=== PATIENT | female | born 1950 | race Caucasian/White ===

== ENCOUNTER → 2016-10-03 | Outpatient (CLI) | payer MEDICARE, OTHER ==
[2014-07-21 11:00] VITALS: BP 144/62
[~2016-10-03] MED LIST: BLOO1EAC MC; CARV6.252 PO; CHOL100017 PO; CINN500C PO; CYCL10TA2 PO; DIGO50SO2 PO; DOXY50CA PO; ESCI10TA PO; FENO160T PO; GLIM4TAB2 PO; HYDR1TAB20 PO; LOSA1TAB17 PO; MELO-150 PO; METF500T4 PO; METR60GE TP; MULT1TAB97 PO; OMEG500C3 PO; SITA100T PO
--- NOTE | 2016-10-03 19:51 | KCIC ---
Bilateral digital screening mammograms with CAD: HISTORY COMPARISON Comparison is made to previous studies dated 09/21/2015 and 08/14/2014. FINDINGS Breast density category B. The skin and nipples show no abnormalities. No abnormal lymph nodes are seen in the axilla. The breast parenchyma shows scattered fibroglandular density. There clustered calcifications at the 6 o'clock B position of the left breast which are joint interval increase in number and some pleomorphism. Malignancy cannot be excluded and further evaluation with stereotactic biopsy is recommended. There continue to be small nodular parenchymal densities bilaterally which have not changed. There are other dominant masses, suspicious calcifications or architectural distortions. Benign appearing calcifications are present IMPRESSION Interval increase in the clustered calcifications at the 6 o'clock B position of the left breast. Recommend stereotactic biopsy. This study was interpreted with the benefit of Computerized Aided Detection (CAD). Mammography is not 100% sensitive in detecting breast cancer. Therefore, a self breast exam and a clinical breast exam are very important. A negative mammogram does not negate a clinically suspicious finding and should not result in a delay in biopsying a clinically suspicious abnormality. BI-RADS category 4: Suspicious. Recommend stereotactic biopsy. This patient's information has been entered into a reminder system for the patient to be notified with the results of this examination and a target date for her next mammograms. Electronically signed by: Jennifer Henry MD (Oct 03, 2016 19:49:25)
== END | disposition home or self-care (01) ==
LOC: KCIC MAMMO 13:54
PROVIDERS: ATTEND Obstetrics & Gynecology
DX: Z12.31 Encounter for screening mammogram for malignant neoplasm of breast (principal)
CPT/HCPCS: G0202; 77067

== ENCOUNTER → 2017-06-17 | Outpatient (CLI) | payer MEDICARE, OTHER ==
[2014-07-21 11:00] VITALS: BP 144/62
[~2017-06-17] MED LIST changes: -CINN500C PO; +CINN500C2 PO; -ESCI10TA PO; +ESCITALOPRAM OX10 MG PO; -LOSA1TAB17 PO; +LOSA1TAB22 PO; -MELO-150 PO; +MELO15TA23 PO
--- NOTE | 2017-06-17 13:58 | KCIC ---
DATE: 06/17/2017 EXAM: DIGITAL DIAGNOSTIC LT HISTORY: Follow-up benign breast biopsy for microcalcifications COMPARISON: 10/03/2016 This study was interpreted with the benefit of Computerized Aided Detection (CAD). The breast parenchyma shows scattered fibroglandular densities. Breast parenchyma level B. FINDINGS: The fibroglandular pattern is nodular in character, but unchanged. No new or enlarging left breast densities are seen. There are clustered and not clustered microcalcifications. A new breast biopsy marker is identified adjacent to the cluster of microcalcifications at the 6:00 location. Reportedly that interval biopsy revealed produced benign results. No new or increasing microcalcifications are seen. IMPRESSION: Stable left mammograms without evidence of malignancy. Follow-up bilateral mammography in 6 months is suggested. BI-RADS CATEGORY: 2 BENIGN FINDING(S) RECOMMENDED FOLLOW-UP: 6M 6 MONTH FOLLOW-UP PQRS compliance statement: Patient information was entered into a reminder system with a target due date for the next mammogram. Mammography is a sensitive method for finding small breast cancers, but it does not detect them all and is not a substitute for careful clinical examination. A negative mammogram does not negate a clinically suspicious finding and should not result in delay in biopsying a clinically suspicious abnormality. "Our facility is accredited by the [employer] Mammography [employer]."
== END | disposition home or self-care (01) ==
LOC: KCIC MAMMO 07:51
PROVIDERS: ATTEND Nurse Practitioner Family
DX: R92.0 Mammographic microcalcification found on diagnostic imaging of breast (principal)
CPT/HCPCS: G0206; 77065

== ENCOUNTER → 2018-08-25 | Outpatient (CLI) | payer MEDICARE, OTHER ==
[2014-07-21 11:00] VITALS: BP 144/62
[~2018-08-25] MED LIST changes: +CARV6.2511 PO; -CARV6.252 PO; +METF500T16 PO; -METF500T4 PO
--- NOTE | 2018-08-25 17:40 | KCIC ---
Bilateral digital screening mammograms with 3-D tomosynthesis: Reason for examination: Routine screening. Comparison is made to previous studies dated back to 08/14/2014. Bilateral mammograms in CC and oblique projections were obtained with 2-D imaging and 3-D tomosynthesis imaging on a Siemens Inspiration unit and reviewed on the workstation. Interpretation was made with the benefit of CAD. The skin and nipples show no abnormalities. No abnormal axillary lymph nodes are seen. The breast parenchyma shows scattered fatty and fibroglandular density. (Breast density: Category B.) There appears to be a biopsy site in the 6:00 position posteriorly in the left breast which shows some adjacent increasing calcifications. These probably represent changes of fat necrosis. There continue to be nodular densities bilaterally which are unchanged. There are no new dominant masses, suspicious calcifications or architectural distortion. Benign calcifications are present. Impression: No evidence of malignancy. Recommend routine screening. BI-RAD Category 2: Benign. "Our facility is accredited by the [employer] Mammography [employer]." This patient's information has been entered into a reminder system for the patient to be notified with the results of her examination and a target date for the next mammogram. Electronically signed by: Analy Henry MD (08/25/2018 5:35 PM) [id number]
== END | disposition home or self-care (01) ==
LOC: KCIC MAMMO 14:43
PROVIDERS: ATTEND Family Medicine
DX: Z12.31 Encounter for screening mammogram for malignant neoplasm of breast (principal)
CPT/HCPCS: 77063; 77067

== ENCOUNTER 2019-08-11 11:29 | Emergency (ER) | payer MEDICARE, OTHER ==
[~2019-08-11 11:29] MED LIST changes: -GLIM4TAB2 PO; +GLIM4TAB8 PO
[2019-08-11 11:56] VITALS: BP 157/101
--- NOTE | 2019-08-11 12:29 | PHYS DOC ---
Past Medical History Past Medical History: CHF, Diabetes-Type II, Hypertension, Other Additional Past Medical Histor: Rosacea, chronic neck pain Past Surgical History: Hysterectomy, Tonsillectomy, Tubal ligation, Other Additional Past Surgical Histo: Blasser sling, Bilateral breast biopsies, Uterine ablation Alcohol Use: None Drug Use: None Adult General Chief Complaint Chief Complaint: HAND PROBLEM HPI HPI Patient is a 68 year old female who presents to the emergency department with complaints of swelling in her left hand for the last 4-5 weeks. 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 She denies any new injury. Patient denies any change in sensation, tingling, redness, warmth, or fever. She reports concern because she has a history of congestive heart failure and was scheduled to have a pacemaker placed toward the end of this month. Patient denies any chest pain, shortness of breath, swelling in her lower extremities, palpitations, nausea, vomiting, abdominal pain, dizziness, or fever. She currently rates pain a 5 out of 10 on pain scale, patient states she has a history of arthritis and takes 1 g of Tylenol 4 times a day for pain. All other ROS is neg unless otherwise noted in HPI. Review of Systems Review of Systems See Above Allergies Allergies Allergies Coded Allergies Type Severity Reaction Last Updated Verified Penicillins Allergy Intermediate Rash 02/10/14 Yes nickel Adverse Reaction Intermediate 02/10/14 Yes aspirin Adverse Reaction Mild 02/10/14 Yes Physical Exam Physical Exam Constitutional: Well developed, well nourished, no acute distress, non-toxic appearance. [] HENT: Normocephalic, atraumatic, bilateral external ears normal, nose normal. [] Eyes: PERRLA, EOMI, conjunctiva normal, no discharge. [] Neck: Normal range of motion, no stridor. [] Cardiovascular:Heart rate regular rhythm, no murmur [] Lungs & Thorax: Bilateral breath sounds clear to auscultation, Respirations even and unlabored, no retractions, no respiratory distress [] Skin: Warm, dry, no erythema, no rash. [] Extremities: L hand: No bony tenderness, no cyanosis, no deformity, no warmth, no clubbing, ROM intact, 1+ edema Neurologic: Alert and oriented X 3, no focal deficits noted. [] Psychologic: Affect normal, judgement normal, mood normal. [] Current Patient Data Vital Signs Vital Signs Date Time Temp Pulse Resp B/P (MAP) Pulse Ox O2 Delivery O2 Flow Rate FiO2 08/11/19 11:56 98.0 97 20 157/101 (119) 96 Room Air 98.0 EKG EKG [] Radiology/Procedures Radiology/Procedures [] Course & Med Decision Making Course & Med Decision Making Pertinent Labs and Imaging studies reviewed. (See chart for details) [] Dragon Disclaimer Dragon Disclaimer This electronic medical record was generated, in whole or in part, using a voice recognition dictation system. Departure Departure Impression: Primary Impression: Arthritic-like pain Additional Impression: Swelling of joint, hand, left Disposition: HOME, SELF-CARE Condition: STABLE Referrals: CALIXTO HERNANDEZ MD (PCP) Patient Instructions: Arthritis, Nonspecific, [id number] Additional Instructions: Continue taking Tylenol as needed for pain. Recommend that you purchase a hand compression sleeve to wear as needed for comfort. Follow-up with your primary care doctor as planned. Return to the ER if symptoms worsen. Problem Qualifiers Primary Impression: Arthritic-like pain Joint pain location: hand Laterality: left Qualified Codes: M25.542 - Pain in joints of left hand ANAND LAZO PEDIATRIC PHYSICIAN ASSISTANT Aug 11, 2019 12:29
== END 2019-08-11 13:11 | disposition home or self-care (01) ==
LOC: ER 11:29
DX: M25.542 Pain in joints of left hand (principal); R22.32 Localized swelling, mass and lump, left upper limb; I11.0 Hypertensive heart disease with heart failure; I50.9 Heart failure, unspecified; E11.9 Type 2 diabetes mellitus without complications; G89.29 Other chronic pain; Z88.0 Allergy status to penicillin; Z88.6 Allergy status to analgesic agent; Z88.8 Allergy status to other drugs, medicaments and biological substances
CPT/HCPCS: 99281

== ENCOUNTER → 2019-10-04 | Outpatient (CLI) | payer MEDICARE, OTHER ==
--- NOTE | 2019-10-04 16:15 | KCIC ---
Bilateral digital screening mammograms with 3-D tomosynthesis: Reason for examination: Routine screening. Comparison is made to previous studies dated back to 10/03/2016. Bilateral mammograms in CC and oblique projections were obtained with 2-D imaging and 3-D tomosynthesis imaging on a Siemens Inspiration unit and reviewed on the workstation. Interpretation was made with the benefit of CAD. The skin and nipples show no abnormalities. No abnormal axillary lymph nodes are seen. The breast parenchyma shows scattered fatty and fibroglandular density. (Breast density: Category B.) There continue to be clustered calcifications at the 6:00 B position of the left breast with an adjacent biopsy clip which at the time of biopsy showed fibroadenomatoid changes and microcalcifications and no malignancy. The calcifications at this site presently appears to be stable. There continue to be coarse clustered and scattered benign-appearing calcifications bilaterally which are stable. There continue to be small nodular parenchymal asymmetries bilaterally which are stable. There are no new dominant masses, suspicious calcifications or architectural distortion. Impression: No evidence of malignancy. Recommend routine screening. BI-RAD Category 2: Benign. "Our facility is accredited by the [employer] Mammography Program." This patient's information has been entered into a reminder system for the patient to be notified with the results of her examination and a target date for the next mammogram. Electronically signed by: Analy Henry MD (10/04/2019 4:12 PM) [id number]
== END | disposition home or self-care (01) ==
LOC: KCIC MAMMO 12:56
PROVIDERS: ATTEND Family Medicine
DX: Z12.31 Encounter for screening mammogram for malignant neoplasm of breast (principal); N64.89 Other specified disorders of breast
CPT/HCPCS: 77063; 77067

== ENCOUNTER → 2020-06-15 | Outpatient (CLI) | payer MEDICARE, OTHER ==
[~2020-06-15] MED LIST changes: +ICOS1CAP PO
== END ==
LOC: LAB 14:08
PROVIDERS: ATTEND Internal Medicine Gastroenterology
DX: Z01.812 Encounter for preprocedural laboratory examination (principal); Z86.010 Personal history of colon polyps; Z20.828 Contact with and (suspected) exposure to other viral communicable diseases
CPT/HCPCS: U0003

== ENCOUNTER → 2020-06-22 | Day surgery (SDC) | payer MEDICARE, OTHER ==
[~2020-06-22] MED LIST changes: +IV RINGERS,LACTATED 1000ML 1,000 ML IV SCH; +LIDOCAINE 2% PF 5 ML VIAL. ONE; +PROPOFOL 10 MG/ML (20ML) VIAL. IV ONE
[2020-06-22 08:39] VITALS: BP 126/59
--- NOTE | 2020-06-22 08:45 | CONS ---
DATE OF CONSULTATION: 06/22/2020 GI CONSULTATION REFERRING PHYSICIAN: Dawit Melo MD REASON FOR CONSULTATION: History of colonic polyps. HISTORY OF PRESENT ILLNESS: A 69-year-old female whose past medical history is significant for diabetes, hypertension, congestive heart failure, is seen for interval colonoscopy. She has had polyps once approximately 20 years ago; has had none since. Bowel habits are regular without diarrhea or constipation. There has been no melena and/or hematochezia. Weight and appetite are stable and family history is unrevealing for colon cancer. She is otherwise without additional complaints. PAST MEDICAL HISTORY: CHF, diabetes, hypertension, anemia, arthritis. ALLERGIES: PENICILLIN, ASPIRIN, NICKEL. MEDICATIONS: Include carvedilol, vitamin D, cyclobenzaprine, digoxin, doxycycline, citalopram, glimepiride, hydrocodone, Vascepa, losartan, metformin, multivitamins. SOCIAL HISTORY: She was a social drinker in the past. Nonsmoker. FAMILY HISTORY: Significant for diabetes, hypertension and heart attacks. PAST SURGICAL HISTORY: Eye surgery, hysterectomy, tonsillectomy, tubal ligation and neck surgery. REVIEW OF SYSTEMS: Per records. PHYSICAL EXAMINATION: GENERAL: Reveals a well-nourished, well-developed female, who is alert, cooperative, in no acute distress. VITAL SIGNS: Temp 98.1, pulse 78, respiratory rate 20. LUNGS: Clear. CARDIOVASCULAR: Reveals an S1, S2 without S3, S4 or appreciable murmur. ABDOMEN: Reveals a soft abdomen, normal bowel sounds, without appreciable hepatosplenomegaly. EXTREMITIES: No cyanosis, clubbing, edema. IMPRESSION: History of colonic polyps. Surveillance exam is recommended at this time. Risks and benefits of procedure, including risk of hemorrhage and perforation for operation have been discussed. The patient is willing to proceed at this time. I would like to thank you, Dr. Dawit Melo, for allowing us to consult and participate in the patient's care. DEIDRE GARCIA MD DR: CHAPARRO/geovanna JOB#: [id number] / [id number] DAWIT Hastings MD
== END | disposition home or self-care (01) ==
LOC: ENDOS 06:55
PROVIDERS: ATTEND Internal Medicine Gastroenterology
DX: Z12.11 Encounter for screening for malignant neoplasm of colon (principal); K64.0 First degree hemorrhoids; K57.30 Diverticulosis of large intestine without perforation or abscess without bleeding; I11.0 Hypertensive heart disease with heart failure; I50.9 Heart failure, unspecified; M19.90 Unspecified osteoarthritis, unspecified site; E11.9 Type 2 diabetes mellitus without complications; Z86.010 Personal history of colon polyps; E78.00 Pure hypercholesterolemia, unspecified; K21.9 Gastro-esophageal reflux disease without esophagitis; G47.30 Sleep apnea, unspecified; E66.9 Obesity, unspecified; Z90.710 Acquired absence of both cervix and uterus; Z98.51 Tubal ligation status; Z98.890 Other specified postprocedural states; Z79.84 Long term (current) use of oral hypoglycemic drugs; Z79.899 Other long term (current) drug therapy; Z88.0 Allergy status to penicillin; Z88.8 Allergy status to other drugs, medicaments and biological substances; Z82.49 Family history of ischemic heart disease and other diseases of the circulatory system; Z83.3 Family history of diabetes mellitus
CPT/HCPCS: G0105; J2704; 45378

== ENCOUNTER 2020-12-18 18:55 | Observation (INO) | payer MEDICARE, OTHER ==
[~2020-12-18] VITALS: Ht 161.3 cm; Wt 75.0 kg
[~2020-12-18 18:55] MED LIST changes: -IV RINGERS,LACTATED 1000ML 1,000 ML IV SCH; -LIDOCAINE 2% PF 5 ML VIAL. ONE; -PROPOFOL 10 MG/ML (20ML) VIAL. IV ONE
[2020-12-18 19:49] LABS: BASO # 0.1 x10^3/uL (0.0-0.2); BASO % 1 % (0-3); EOS # 0.3 x10^3/uL (0.0-0.7); EOS % 3 % (0-3); HEMATOCRIT 33.2 % (36.0-47.0); HEMOGLOBIN 11.1 g/dL (12.0-15.5); LYMPH # 1.8 x10^3/uL (1.0-4.8); LYMPH % 18 % (24-48); MEAN CORPUSCULAR HEMOGLOBIN 29 pg (25-35); MEAN CORPUSCULAR HGB CONC 34 g/dL (31-37); MEAN CORPUSCULAR VOLUME 86 fL (79-100); MONO # 0.7 x10^3/uL (0.0-1.1); MONO % 7 % (0-9); NEUT # 7.2 x10^3/uL (1.8-7.7); NEUT % 71 % (31-73); PLATELET COUNT 213 x10^3/uL (140-400); RED BLOOD COUNT 3.84 x10^6/uL (3.50-5.40); RED CELL DISTRIBUTION WIDTH 12.2 % (11.5-14.5); WHITE BLOOD COUNT 10.1 x10^3/uL (4.0-11.0)
[2020-12-18 19:59] LABS: CREATININE 1.3 mg/dL (0.6-1.0); GFR 40.3; POTASSIUM 4.7 mmol/L (3.5-5.1)
[2020-12-18 20:05] LABS: ALBUMIN 3.5 g/dL (3.4-5.0); TOTAL BILIRUBIN 0.5 mg/dL (0.2-1.0)
[2020-12-18 20:13] LABS: PROTHROMBIN TIME PATIENT 15.7 SEC (11.7-14.0)
--- NOTE | 2020-12-18 20:19 | PHYS DOC ---
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 She states it then gave her the green check olivier. She states that the company is going to call her physician. Patient's ca rdiologist is at . Patient states that for the last couple days she has had some shortness of breath and generalized weakness and some nausea. Patient denies fever, chest pain, dizziness, headache, syncope, vision changes, focal weakness, swelling, abdominal pain, diarrhea, cough. She denies any pain at this time. She is fully vaccinated for Covid. Patient has a history of a hysterectomy, CHF, diabetes, hypertension, uterine ablation, rosacea, tonsillectomy. 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 [] Eyes: Denies change in visual acuity. [] HENT: Denies nasal congestion or sore throat. [] Respiratory: Denies cough or +shortness of breath. [] Cardiovascular: Denies chest pain or edema. [] GI: Denies abdominal pain, +nausea, denies vomiting, bloody stools or diarrhea. [] : Denies dysuria. [] Musculoskeletal: Denies back pain or joint pain. + Generalized weakness [] Integument: Denies rash. [] Neurologic: Denies headache, focal weakness or sensory changes. [] Endocrine: Denies polyuria or polydipsia. [] Lymphatic: Denies swollen glands. [] Psychiatric: Denies depression or anxiety. [] (YUN JOSE TEST CAR DRIVER) Heart Score: C/O Chest Pain: No Risk Factors: Risk Factors: DM, Current or recent (<one month) smoker, HTN, HLP, family history of CAD, obesity. Risk Scores: Score 0 - 3: 2.5% MACE over next 6 weeks - Discharge Home Score 4 - 6: 20.3% MACE over next 6 weeks - Admit for Clinical Observation Score 7 - 10: 72.7% MACE over next 6 weeks - Early Invasive Strategies ([facility],YUN M TEST CAR DRIVER) Allergies: Allergies: Allergies Coded Allergies Type Severity Reaction Last Updated Verified Penicillins Allergy Intermediate Rash 12/18/20 Yes nickel Adverse Reaction Intermediate 12/18/20 Yes aspirin Adverse Reaction Mild 12/18/20 Yes ([facility],YUN M TEST CAR DRIVER) Physical Exam: PE: Constitutional: Well developed, well nourished, no acute distress, non-toxic appearance. [] HENT: Normocephalic, atraumatic, bilateral external ears normal, oropharynx moist, no oral exudates, nose normal. [] Eyes: PERRLA, EOMI, conjunctiva normal, no discharge. [] Neck: Normal range of motion, no tenderness, supple, no stridor. [] Cardiovascular:Heart rate regular paced rhythm, no murmur [] Lungs & Thorax: Bilateral upper breath sounds clear and lower diminished to auscultation [] Abdomen: Bowel sounds normal, soft, no tenderness, no masses, no pulsatile masses. [] Skin: Warm, dry, no erythema, no rash. [] Back: No tenderness, no CVA tenderness. [] Extremities: No tenderness, no cyanosis, no clubbing, ROM intact, no edema. [] Neurologic: Alert and oriented X 3, normal motor function, normal sensory function, no focal deficits noted. [] Psychologic: Affect normal, judgement normal, mood normal. [] ([facility],YUN M TEST CAR DRIVER) Current Patient Data: Labs: Laboratory Tests Test 12/18/20 19:40 White Blood Count 10.1 x10^3/uL (4.0-11.0) Red Blood Count 3.84 x10^6/uL (3.50-5.40) Hemoglobin 11.1 g/dL (12.0-15.5) L Hematocrit 33.2 % (36.0-47.0) L Mean Corpuscular Volume 86 fL (79-100) Mean Corpuscular Hemoglobin 29 pg (25-35) Mean Corpuscular Hemoglobin Concent 34 g/dL (31-37) Red Cell Distribution Width 12.2 % (11.5-14.5) Platelet Count 213 x10^3/uL (140-400) Neutrophils (%) (Auto) 71 % (31-73) Lymphocytes (%) (Auto) 18 % (24-48) L Monocytes (%) (Auto) 7 % (0-9) Eosinophils (%) (Auto) 3 % (0-3) Basophils (%) (Auto) 1 % (0-3) Neutrophils # (Auto) 7.2 x10^3/uL (1.8-7.7) Lymphocytes # (Auto) 1.8 x10^3/uL (1.0-4.8) Monocytes # (Auto) 0.7 x10^3/uL (0.0-1.1) Eosinophils # (Auto) 0.3 x10^3/uL (0.0-0.7) Basophils # (Auto) 0.1 x10^3/uL (0.0-0.2) Sodium Level 137 mmol/L (136-145) Potassium Level 4.7 mmol/L (3.5-5.1) Chloride Level 101 mmol/L (98-107) Carbon Dioxide Level 29 mmol/L (21-32) Anion Gap 7 (6-14) Blood Urea Nitrogen 20 mg/dL (7-20) Creatinine 1.3 mg/dL (0.6-1.0) H Estimated GFR (Cockcroft-Gault) 40.3 BUN/Creatinine Ratio 15 (6-20) Glucose Level 178 mg/dL (70-99) H Calcium Level 9.0 mg/dL (8.5-10.1) Total Bilirubin 0.5 mg/dL (0.2-1.0) Aspartate Amino Transferase (AST) 13 U/L (15-37) L Alanine Aminotransferase (ALT) 21 U/L (14-59) Alkaline Phosphatase 52 U/L (46-116) Troponin I Quantitative < 0.017 ng/mL (0.000-0.055) IF-Jfz-V-Type Natriuretic Peptide 448 pg/mL (0-124) H Total Protein 7.0 g/dL (6.4-8.2) Albumin 3.5 g/dL (3.4-5.0) Albumin/Globulin Ratio 1.0 (1.0-1.7) Laboratory Tests 12/18/20 19:40 Laboratory Tests 12/18/20 19:40 Vital Signs: Vital Signs Date Time Temp Pulse Resp B/P (MAP) Pulse Ox O2 Delivery O2 Flow Rate FiO2 12/18/20 19:30 96.4 83 20 161/74 (103) 93 Room Air 96.4 (YUN JOSE APRN) EKG: EK and read by Dr. Will as ventricular paced rhythm without any ischemic findings or STEMI. (YUN JOSE APRN) Radiology/Procedures: Radiology/Procedures: [] Impression: [facility] [address] [place] [address] IMAGING REPORT Signed PATIENT: MARCO ROSALES ACCOUNT: [id number] : 1950 LOCATION: ER AGE: 70 SEX: F EXAM STATUS: REG ER ORD. PHYSICIAN: YUN JOSE APRN REASON: SOA PROCEDURE: PORTABLE CHEST 1V EXAM: AP View of the chest DATE: 12/18/2020 8:14 PM INDICATION: Reason: SOA / Spl. Instructions: / History: COMPARISON: No Prior FINDINGS: Cardiac generator pack obscures a portion of the left chest with leads in stable position. The heart is not enlarged. Mediastinal and hilar contours are normal. Minimal left lung base opacities likely atelectasis. Aortic calcifications are seen. Trace right pleural effusion. Small left pleural effusion. No pneumothorax. IMPRESSION: Minimal left lung base opacities likely atelectasis. Small pleural effusions. Electronically signed by: Kendrick Mock MD (12/18/2020 8:59 PM) [facility] DICTATED and SIGNED BY: KENDRICK MOCK MD DATE: 12/18/[id number] 0 (YUN JOSE APRN) Course & Med Decision Making: Course & Med Decision Making Pertinent Labs and Imaging studies reviewed. (See chart for details) See HPI. Alert and oriented x4. Ambulatory with a steady gait. Speaks in full clear sentences. Skin pink warm and dry. Lungs are clear in upper lobes and diminished in lower lobes. Abdomen is soft and nontender. Vital signs are within normal limits. EKG shows ventricular paced rhythm without any acute ischemic findings and no STEMI. Chest x-ray shows pleural effusions. Patient is 93% on room air. Blood work is unremarkable. Patient will be admitted to the hospital due to her defibrillator firing for observation. [] (YUN JOSE APRN) Course & Med Decision Making I oversaw on the above date of service of this patient and discussed the care with the BAKERY DELIVERER. I agree with the findings, plan of care, and disposition as rina mckeon. Electronically signed, Jamil Will DO Critical Care Time This patient required critical care. Due to the fact that the patient required a significant amount of one on one physician - patient contact time, ordering and review of studies, arranging urgent treatment with development of a management plan, evaluation of patients response to treatment with frequent reassessments, and discussions with other providers this patient required 35 minutes of critical care time. Critical care time was indicated due to the inherent instability and/or potential for instability in this patient. The critical care time that is allocated to this patient is above and beyond any time spent on any other billable procedures performed on this patient. (JAMIL WILL DO) Dragon Disclaimer: Dragon Disclaimer: This electronic medical record was generated, in whole or in part, using a voice recognition dictation system. (YUN JOSE APRN) Departure Departure Impression: Primary Impression: Pleural effusion Additional Impressions: Body aches Defibrillator discharge Disposition: ADMITTED INPATIENT Admitting Physician: KARY (YUN JOSE APRN) Condition: STABLE Referrals: CALIXTO HERNANDEZ MD (PCP) YUN JOSE APRN December 18, 2020 20:19 JAMIL WILL DO December 21, 2020 09:55
--- NOTE | 2020-12-18 21:01 | RAD ---
EXAM: AP View of the chest DATE: 12/18/2020 8:14 PM INDICATION: Reason: SOA / Spl. Instructions: / History: COMPARISON: No Prior FINDINGS: Cardiac generator pack obscures a portion of the left chest with leads in stable position. The heart is not enlarged. Mediastinal and hilar contours are normal. Minimal left lung base opacities likely atelectasis. Aortic calcifications are seen. Trace right pleural effusion. Small left pleural effusion. No pneumothorax. IMPRESSION: Minimal left lung base opacities likely atelectasis. Small pleural effusions. Electronically signed by: Kendrick Watson MD (12/18/2020 8:59 PM) [facility]
--- NOTE | 2020-12-18 21:31 | EKG ---
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
[2020-12-18 21:53] LABS: BILIRUBIN,URINE NEGATIVE (NEG); CLARITY,URINE CLEAR; COLOR,URINE YELLOW; NITRITE,URINE POSITIVE (NEG); PROTEIN,URINE 30 mg/dL (NEG-TRACE); UROBILINOGEN,URINE 0.2 mg/dL (0.2 mg/dL)
[2020-12-18 22:00] LABS: AMORPHOUS SEDIMENT,UR PRESENT /HPF; BACTERIA,URINE FEW /HPF (0-FEW); GRANULAR CASTS,URINE OCCASIONAL /HPF; HYALINE CASTS, URINE OCCASIONAL /HPF; RBC,URINE 0 /HPF (0-2)
[2020-12-18 23:10] VITALS: BP 142/68
--- NOTE | 2020-12-18 23:30 | NUR ---
Admit to [facility] room 204 from ED via gurdelmy. A/O x 4 on arrival. Pleasant. Talkative. Admit for AICD discharge. Patient explains she is not sure AIICD discharged but saw a error reading on her heart monitor at home that prompted her to call the [employer]. Admitted for observation. Orientated to room and call light. Reviewed POC to include tele monitor and lab draws. Verbalized understanding. Resting in bed. Eating box lunch. Call light at hand.
[2020-12-18] MEDS ORDERED: CLOP75TA PO (23:36)
[2020-12-18] MEDS ORDERED: SITA100T PO (23:37)
[2020-12-18] MEDS ORDERED: CRESTOR5 MG PO (23:39)
[2020-12-18] MEDS ORDERED: LOSA100T14 PO (23:40)
[2020-12-18] MEDS ORDERED: VITA-8 PO (23:43)
[2020-12-18] MEDS ORDERED: ASPI-630 PO (23:47)
[2020-12-18] MEDS ORDERED: DIPH25CA58 PO (23:51)
[2020-12-18] MEDS ORDERED: HYDR-2761 PO (23:52)
[2020-12-18] MEDS ORDERED: calcium PO (23:54)
[2020-12-18] MEDS ORDERED: tumeric PO (23:58)
[2020-12-19] MEDS ORDERED: diphenhydrAMINE HCL 25 MG CAPSULE PO PRN
[2020-12-19] MEDS ORDERED: vitamin D3 PO (00:06)
[2020-12-19] MEDS ORDERED: cranberry PO (00:08)
[2020-12-19] MEDS ORDERED: MECO10005 PO (00:10)
[2020-12-19] MEDS ORDERED: CINN500C2 PO (00:11)
[2020-12-19 02:42] VITALS: BP 112/87
[2020-12-19] MEDS: ACETAMINOPHEN 500 MG TABLET PO PRN ×2 (03:36→11:44)
[2020-12-19 07:00] VITALS: BP 148/71
[2020-12-19] MEDS ORDERED: AMOXICILLIN/K CLAV 500/125MG TABLET. PO SCH (09:00)
--- NOTE | 2020-12-19 09:13 | HP ---
ADMIT DATE: 12/19/2020 CHIEF COMPLAINT: Body aches and defibrillator, possibly discharge. HISTORY OF PRESENT ILLNESS: The patient is a pleasant 70-year-old female who presented with some body aches. She states that her defibrillator may have discharged. She called the company because there was an error message on the machine. They told her to turn it off and turn it back on, but it still had a green olivier on the screen, so they told her to come in to the ER. I discussed the case with ER physician. She has been admitted overnight. Now, she is being examined in room 204 where she is doing better, but she does have a UTI as well. PAST MEDICAL HISTORY: Defibrillator, CHF, diabetes, hypertension, rosacea, chronic pain, hysterectomy, tonsillectomy, tubal ligation, bladder sling, breast biopsies, uterine ablation. ALLERGIES: PENICILLIN, ASPIRIN AND NICKEL. FAMILY HISTORY: Diabetes. SOCIAL HISTORY: She does not drink, smoke or take drugs. 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 MEDICATIONS: Reviewed. REVIEW OF SYSTEMS: GENERAL: No history of weight change, weakness or fevers. SKIN: No bruising, hair changes or rashes. EYES: No blurred, double or loss of vision. NOSE AND THROAT: No history of nosebleeds, hoarseness or sore throat. HEART: No history of palpitations, chest pain or shortness of breath on exertion. LUNGS: Denies cough, hemoptysis, wheezing or shortness of breath. GASTROINTESTINAL: Denies changes in appetite, nausea, vomiting, diarrhea or constipation. GENITOURINARY: No history of frequency, urgency, hesitancy or nocturia. NEUROLOGIC: Denies history of numbness, tingling, tremor or weakness. PSYCHIATRIC: No history of panic, anxiety or depression. ENDOCRINE: No history of heat or cold intolerance, polyuria or polydipsia. EXTREMITIES: Denies muscle weakness, joint pain, pain on walking or stiffness. PHYSICAL EXAMINATION: VITALS: Within normal limits and are stable. GENERAL: No apparent distress. Alert and oriented. HEENT: Normal cephalic atraumatic, external auditory canals are patent. EYES: Extraocular muscles are intact, pupils are equally round and reactive to light and accommodation. MUSCULOSKELETAL: Well developed, well nourished, good range of motion. ENDOCRINE: No thyromegaly was palpated. LYMPHATICS: No cervical chain or axillary nodes were noted. HEMATOPOIETIC: No bruising. NECK: Supple, no JVD, no thyromegaly was noted. LUNGS: Clear to auscultation in all lung mcmanus without rhonchi or wheezing. HEART: RRR, S1, S2 present. Peripheral pulses intact, no obvious murmurs were noted. ABDOMEN: Soft, nontender. Positive bowel sounds no organomegaly, normal bowel sounds. EXTREMITIES: Without any cyanosis, clubbing, or edema. Pedal pulses intact, Homans sign is negative. NEUROLOGIC: Normal speech, normal tone. A and O x 3, moves all extremities, no obvious focal deficits. PSYCHIATRIC: Normal affect, normal mood. Stable. SKIN: No ulcerations or rashes, good skin turgor, no jaundice. VASCULAR: Good capillary refill, neurovascular bundle appears to be intact. LABORATORY DATA: Troponin is 0. BNP 448, hemoglobin 11. ASSESSMENT AND PLAN: Possible discharge of defibrillator with incidental finding of UTI. We have started Augmentin 875 p.o. b.i.d. We are doing cardiac monitoring, home meds, DVT prophylaxis. Full Code. Serial enzymes, serial EKGs. Await cardiology input. We will probably interrogate the defibrillator. If everything looks good, we may be able to let her go home later today. ZINA/JULIA DR: ZINA/geovanna TID: [id number]
--- NOTE | 2020-12-19 09:43 | PDOC2 ---
PINO RODRÍGUEZ DEAN OF BOYS 12/19/20 0943: CARDIAC CONSULT DATE OF CONSULT Date of Consult DATE: 12/19/20 TIME: 09:22 REASON FOR CONSULT Reason for Consult: Defibrillator discharge REFERRING PHYSICIAN Referring Physician: Kitty SOURCE Source: Chart review, Patient HISTORY OF PRESENT ILLNESS HISTORY OF PRESENT ILLNESS This is a pleasant 70 yo female admitted for complains of not feeling good. Reports of body aches at least in the last 2 days. No chest pain or SOA and no leg swelling. No fever or chills. She just has been feeling miserable. Denies any cardiac symptoms. She then see her defibrillator flashing on the top part and saying p32 and thinking it was an error and then she did a transmission and received instructions to switch it off and then on and then it was ok after that. Denies any defibrillation treatment. 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 PAST MEDICAL HISTORY Cardiovascular: CAD, CHF, HTN, Hyperlipidemia, Other (chronic LBBB, cardiomyopathy) Pulmonary: Other (ALLYSSA) CENTRAL NERVOUS SYSTEM: Carpal Tunnel Syndrome Musculoskeletal: Osteoarthritis, Other (boutonniere deformity) Renal/: Urinary Incontinence Endocrine: Diabetes (2) PAST SURGICAL HISTORY Past Surgical History: Tubal Ligation, Tonsillectomy, Hysterectomy, Other (PCI, breast surgery, bladder sling) FAMILY HISTORY Family History: Diabetes, Hypertension SOCIAL HISTORY Smoke: No ALCOHOL: none Drugs: None Lives: with Family CURRENT MEDICATIONS CURRENT MEDICATIONS Current Medications Medications (Trade) Dose Ordered Sig/Cyndy Route PRN Reason Start Time Stop Time Status Last Admin Dose Admin Diphenhydramine HCl (Benadryl) 25 mg PRN QHS PRN PO INSOMNIA 12/19/20 00:00 12/19/20 00:00 Acetaminophen (Tylenol) 1,000 mg PRN Q6HRS PRN PO PAIN/FEVER 12/19/20 03:30 12/19/20 03:36 ALLERGIES ALLERGIES: Coded Allergies: Penicillins (Verified Allergy, Intermediate, Rash, 12/18/20) TOPICAL PENICILLIN nickel (Verified Adverse Reaction, Intermediate, 12/18/20) aspirin (Verified Adverse Reaction, Mild, 12/18/20) ROS Review of System 14 point ROS evaluated with pertinent positives noted per HPI PHYSICAL EXAM General: Alert, Oriented X3, Cooperative, No acute distress HEENT: Atraumatic, Mucous membr. moist/pink Lungs: Clear to auscultation, Normal air movement Heart: Regular rate (pacing), Normal S1, Normal S2, Other (2/6 systolic murmur to LLSborder) Abdomen: Soft, No tenderness Extremities: No cyanosis, No edema Skin: No breakdown, No significant lesion Neuro: Normal speech, Sensation intact Psych/Mental Status: Mental status NL, Mood NL MUSCULOSKELETAL: Osteoarthritic changes both hands VITALS/I&O VITALS/I&O: Vital Signs Date Time Temp Pulse Resp B/P (MAP) Pulse Ox O2 Delivery O2 Flow Rate FiO2 12/19/20 07:00 97.7 84 18 148/71 (96) 98 Room Air 97.7 I & O 12/18/20 12/18/20 12/19/20 15:00 23:00 07:00 Intake Total 60 ml Output Total 600 ml Balance -540 ml LABS Lab: Laboratory Tests Test 12/18/20 19:40 12/18/20 19:59 12/18/20 21:45 12/19/20 00:30 White Blood Count 10.1 x10^3/uL (4.0-11.0) Red Blood Count 3.84 x10^6/uL (3.50-5.40) Hemoglobin 11.1 g/dL (12.0-15.5) L Hematocrit 33.2 % (36.0-47.0) L Mean Corpuscular Volume 86 fL (79-100) Mean Corpuscular Hemoglobin 29 pg (25-35) Mean Corpuscular Hemoglobin Concent 34 g/dL (31-37) Red Cell Distribution Width 12.2 % (11.5-14.5) Platelet Count 213 x10^3/uL (140-400) Neutrophils (%) (Auto) 71 % (31-73) Lymphocytes (%) (Auto) 18 % (24-48) L Monocytes (%) (Auto) 7 % (0-9) Eosinophils (%) (Auto) 3 % (0-3) Basophils (%) (Auto) 1 % (0-3) Neutrophils # (Auto) 7.2 x10^3/uL (1.8-7.7) Lymphocytes # (Auto) 1.8 x10^3/uL (1.0-4.8) Monocytes # (Auto) 0.7 x10^3/uL (0.0-1.1) Eosinophils # (Auto) 0.3 x10^3/uL (0.0-0.7) Basophils # (Auto) 0.1 x10^3/uL (0.0-0.2) Sodium Level 137 mmol/L (136-145) Potassium Level 4.7 mmol/L (3.5-5.1) Chloride Level 101 mmol/L (98-107) Carbon Dioxide Level 29 mmol/L (21-32) Anion Gap 7 (6-14) Blood Urea Nitrogen 20 mg/dL (7-20) Creatinine 1.3 mg/dL (0.6-1.0) H Estimated GFR (Cockcroft-Gault) 40.3 BUN/Creatinine Ratio 15 (6-20) Glucose Level 178 mg/dL (70-99) H Calcium Level 9.0 mg/dL (8.5-10.1) Total Bilirubin 0.5 mg/dL (0.2-1.0) Aspartate Amino Transferase (AST) 13 U/L (15-37) L Alanine Aminotransferase (ALT) 21 U/L (14-59) Alkaline Phosphatase 52 U/L (46-116) Troponin I Quantitative < 0.017 ng/mL (0.000-0.055) < 0.017 ng/mL (0.000-0.055) FA-Elu-A-Type Natriuretic Peptide 448 pg/mL (0-124) H Total Protein 7.0 g/dL (6.4-8.2) Albumin 3.5 g/dL (3.4-5.0) Albumin/Globulin Ratio 1.0 (1.0-1.7) Prothrombin Time 15.7 SEC (11.7-14.0) H Prothrombin Time INR 1.3 (0.8-1.1) H Urine Collection Type Unknown Urine Color Yellow Urine Clarity Clear Urine pH 6.0 (<5.0-8.0) Urine Specific [place] 1.020 (1.000-1.030) Urine Protein 30 mg/dL (NEG-TRACE) Urine Glucose (UA) Negative mg/dL (NEG) Urine Ketones (Stick) Negative mg/dL (NEG) Urine Blood Negative (NEG) Urine Nitrite Positive (NEG) Urine Bilirubin Negative (NEG) Urine Urobilinogen Dipstick 0.2 mg/dL (0.2 mg/dL) Urine Leukocyte Esterase Moderate (NEG) Urine RBC 0 /HPF (0-2) Urine WBC 11-20 /HPF (0-4) Urine Squamous Epithelial Cells Few /LPF Urine Amorphous Sediment Present /HPF Urine Bacteria Few /HPF (0-FEW) Urine Hyaline Casts Occasional /HPF Urine Granular Casts Occasional /HPF Urine Mucus Slight /LPF Test 12/19/20 06:00 12/19/20 07:37 Troponin I Quantitative < 0.017 ng/mL (0.000-0.055) Glucose (Fingerstick) 139 mg/dL (70-99) H Laboratory Tests 12/18/20 19:40 Laboratory Tests 12/18/20 19:40 EKG EKG Title: Normal Remote: With Events. [employer] device evaluation 12/18/2020 * Normal Device Function * Events or Alerts: 3 * Battery: OK * Sensing, impedance and thresholds reviewed * Programmed parameters reviewed * Presenting rhythm As BiVP 77bpm * Heart Rate Histograms reviewed Title: Heart Failure Diagnostic: Stable * Heart failure diagnostics assessed through the device * Status: Stable * No overt HF present Title: Ventricular Sensing Episodes * VSE Marker channels are suggestive of NSVT * Total episodes: 3 * Average minutes/day: 0 Last episode 11/25/2020. Episodes 4-6 seconds. 111-154bpm. ECHOCARDIOGRAM ECHOCARDIOGRAM 02/01/2020 [facility] limited TTE Overall LV systolic function is moderately reduced at about 40%. Septal motion is abnormal likely due to biventricular pacing. Grade 1 LV diastolic dysfunction with normal left atrial pressure Normal right ventricular size and systolic function This is a 2D study thus valve function cannot be ascertained but structurally valves appear to be okay without evidence of aortic or mitral valve stenosis on 2D imaging There is a small mostly circumferential pericardial effusion. This is unchanged from prior study from December 2019. There is no evidence of tamponade 12/20/2019 [facility] TTE 1. Normal LV size and moderately reduced LV systolic function. LVEF 35%. Abnormal septal motion due to LBBB 2. Normal RV size and systolic function. ICD lead seen 3. No hemodynamically significant valve disease. 4. Small pericardial effusion with no echo findings of tamponade physiology Compared to previous echo from 2018, effusion is slightly larger, but remains very small with no tamponade. HEART CATH HEART CATH 09/09/18-cardiac catheterization revealed a 90% stenosis of the proximal LAD, treated with a ABHINAV. Moderate stenosis noted in the diagonal branch and mild disease in the RCA. ASSESSMENT/PLAN ASSESSMENT/PLAN 1. UTI 2. Myalgia/malaise 3. CAD: prior PCI/ABHINAV to LAD clinically stable 4. ICM: prior EF at 40%, compensated 5. [employer]-D in situ: TaxJartronic, Interrogation revealed normal functioning device, no treatment and no significant arrhythmia. 6. HTN: controlled 7. DM2: per PCP 8. HLP 9. Chronic systolic CHF 10. Chronic LBBB Recommendations 1. Antibiotic per PCP 2. Anticipate DC today. No cardiac issues 3. Follow up with Dr. Holly in January as scheduled 4. Continue secondary prevention measures including plavix. Will check CK as well JAS VILLARREAL MD 12/19/201930: CARDIAC CONSULT ASSESSMENT/PLAN ASSESSMENT/PLAN Patient seen and examined. Agree with RESIDENTIAL TREATMENT STAFF's assessment and plan. Device check did not show any treatments delivered and no VT/VF recorded CAD clinically stable Chronic systolic HF better compensated Continue current medical regimen and follow up with primary cardiology as scheduled Thank you for your consultation PINO RODRÍGUEZ APRN December 19, 2020 09:43 JAS VILLARREAL MD December 19, 2020 19:31
[2020-12-19 11:00] VITALS: BP 139/70
--- NOTE | 2020-12-19 11:56 | NUR ---
SS following for discharge planning. SS reviewed pt chart and discussed with pt RN. Pt is from home and is currently on room air. Discharge order on the chart for home with self care.
--- NOTE | 2020-12-19 13:41 | NUR ---
Discharge Note: MARCO ROSALES 2 SARVER Discharge instructions and discharge home medications reviewed with Patient and a copy given. All questions have been answered and understanding verbalized. Prescription for Augmentin given to patient, see copy in chart. The following instructions and handouts were given: UTI, pacemaker IV discontinued, no complications. Patient discharged to home with self care.
== END 2020-12-19 13:30 | disposition home or self-care (01) ==
LOC: ER 18:55 → 2 NORTH 21:10
PROVIDERS: ADMIT Internal Medicine; ATTEND Internal Medicine
DX: I42.9 Cardiomyopathy, unspecified (principal); J90 Pleural effusion, not elsewhere classified; M79.10 Myalgia, unspecified site; I11.0 Hypertensive heart disease with heart failure; I50.22 Chronic systolic (congestive) heart failure; I25.10 Atherosclerotic heart disease of native coronary artery without angina pectoris; I44.7 Left bundle-branch block, unspecified; E78.5 Hyperlipidemia, unspecified; N39.0 Urinary tract infection, site not specified; E11.9 Type 2 diabetes mellitus without complications; G56.00 Carpal tunnel syndrome, unspecified upper limb; M19.90 Unspecified osteoarthritis, unspecified site; Z90.710 Acquired absence of both cervix and uterus; Z98.61 Coronary angioplasty status; Z98.51 Tubal ligation status; Z79.899 Other long term (current) drug therapy; Z98.890 Other specified postprocedural states; Z95.810 Presence of automatic (implantable) cardiac defibrillator
CPT/HCPCS: 36415; 71045; 80053; 81001; 82550; 82962; 83880; 84484; 85025; 85610; 87086; 93005; 99291; G0378; Q0163; G0379

== ENCOUNTER → 2021-01-21 | Outpatient (CLI) | payer MEDICARE, OTHER ==
[~2021-01-21] MED LIST changes: +ASPI-630 PO; +CLOP75TA PO; +CRESTOR5 MG PO; +DIPH25CA58 PO; +HYDR-2761 PO; +LOSA100T14 PO; +MECO10005 PO; +VITA-8 PO; +calcium PO; +cranberry PO; +tumeric PO; +vitamin D3 PO
--- NOTE | 2021-01-21 15:46 | KCIC ---
Bilateral digital screening mammograms with 3-D tomosynthesis: Reason for examination: Routine screening. Comparison is made to previous studies dated back to 08/14/2014. Bilateral mammograms in CC and oblique projections were obtained with 2-D imaging and 3-D tomosynthes is imaging on a Siemens Inspiration unit and reviewed on the workstation. Interpretation was made wit h the benefit of CAD. The skin and nipples show no abnormalities. No abnormal axillary lymph nodes are seen. The breast par enchyma shows scattered fatty and fibroglandular density. (Breast density: Category B.) There continu e to be some nodular densities bilaterally which are unchanged. There are also scattered and clustere d calcifications bilaterally which are stable. In the right breast however, there appear to be a nodu le with some associated architectural distortion at the 10:00 C position 12.5 cm from the nipple benjamin uring approximately 8 mm in size. There is also a small nodule located medially at approximately the 3:30 B position 6 cm from the nipple in the right breast and measuring approximately 6 mm in size. Fu rther evaluation with right breast ultrasound is recommended. Impression: New nodular densities in the right breast at the 10:00 C position measuring 8 mm in size and at the 3 :30 B position measuring 6 mm in size. Recommend further evaluation with right breast ultrasound. BI-RAD Category 0: Incomplete. Needs additional imaging evaluation. "Our facility is accredited by the [employer] Mammography Program." This patient's information has been entered into a reminder system for the patient to be notified wit h the results of her examination and a target date for the next mammogram. Electronically signed by: Analy Henry MD (01/21/2021 3:43 PM) [email or web address]
== END ==
LOC: KCIC MAMMO 13:46
PROVIDERS: ATTEND Family Medicine
DX: Z12.31 Encounter for screening mammogram for malignant neoplasm of breast (principal); N64.89 Other specified disorders of breast
CPT/HCPCS: 77063; 77067

== ENCOUNTER → 2021-02-13 | Outpatient (CLI) | payer MEDICARE, OTHER ==
--- NOTE | 2021-02-13 14:43 | KCIC ---
Right breast ultrasound: Reason for examination: Parenchymal density on screening mammogram. Comparison is to mammographic exam dated 01/21/2021. Ultrasound examination was performed of the right breast and axilla. At the 3:00 position 4.5 cm from the nipple, there is a small hypoechoic circumscribed lesion in para llel orientation which measures 7 x 3.4 mm in greatest dimension and probably represents a small fibr oadenoma. In the 10:00 position 10 cm from the nipple and corresponding to the site of previous excis ional biopsy, there is mild heterogeneity to the tissue with probable fat necrosis. This would appear to correspond with the area of mammographic concern. No other cystic or solid nodules are seen no ab normal appearing lymph nodes are seen in the right axilla. IMPRESSION: Small 7 mm circumscribed nodule at the 3:00 position which may represent a small fibroadenoma. Post e xcisional biopsy changes at the 10:00 position 10 cm from the nipple which probably corresponds to th e area of mammographic concern. Recommend reevaluation with right breast mammograms and ultrasound in 3 months. BI-RADS Category 3: Probably Benign. "Our facility is accredited by the [employer] Mammography Program." This patient's information has been entered into a reminder system for the patient to be notified wit h the results of her examination and a target date for the next mammogram. Electronically signed by: Analy Henry MD (02/13/2021 2:40 PM) [email or web address]
== END ==
LOC: KCIC US 12:18
PROVIDERS: ATTEND Family Medicine
DX: N63.41 Unspecified lump in right breast, subareolar (principal); R92.8 Other abnormal and inconclusive findings on diagnostic imaging of breast
CPT/HCPCS: 76641

== ENCOUNTER → 2021-05-16 | Outpatient (CLI) | payer MEDICARE, OTHER ==
--- NOTE | 2021-05-16 13:55 | KCIC ---
Right breast diagnostic digital mammograms with 3-D tomosynthesis: Reason for examination: Follow-up nodules. Comparison is made to previous studies dated back to 06/17/2017. Right mammograms in CC and oblique projections were obtained with 2-D imaging and 3-D tomosynthesis i maging on a Siemens Inspiration unit and reviewed on the workstation. Interpretation was made with th sandra benefit of CAD. The skin and nipple show no abnormalities. No abnormal axillary lymph nodes are seen. The breast pare nchyma shows scattered fatty and fibroglandular density. (Breast density: Category B.) There continue s to be a small nodular density posterior laterally in the cc view which is stable. Nodular density s een anterior medially in the right cc view appears be less prominent. There does continue to be a sma ll nodular parenchymal density at the 5:00 B position which is stable. Coarse calcifications consiste nt with degenerated fibroadenoma again seen and are stable. There are no new dominant masses, suspici ous calcifications or architectural distortion. Impression: Nodular densities at the posterior lateral right breast on cc view at the 5:00 B position of the righ t breast are stable. There is decreased nodularity seen anterior medially. Ultrasound to follow. BI-RAD Category 0: Incomplete. Needs additional imaging evaluation. Right breast ultrasound: Comparison is made to previous study dated 02/13/2021. Ultrasound examination of the right breast and axilla was performed. There is a small 4.8 x 3.6 mm nodule at the 3:00 position 4.5 cm from the nipple which has decreased in size. At the 11:00 position in the region of previous scar, there is a 7.7 mm focus of nodular par enchymal densities which probably corresponds with the area of mammographic concern posterior lateral ly and system with parenchymal scarring from excisional biopsy. No abnormal appearing lymph nodes are seen in the axilla. IMPRESSION: Improvement in the nodule at the 3:00 position. Continued presence of nodular density at the 11:00 position which appears to corresponds with the are a of mammographic concern and would correspond with the previous site of excisional biopsy. Recommend continued follow-up with right breast mammograms and ultrasound 6 months. BI-RADS Category 3: Probably Benign. "Our facility is accredited by the [employer] Mammography Program." This patient's information has been entered into a reminder system for the patient to be notified wit h the results of her examination and a target date for the next mammogram. Electronically signed by: Analy Henry MD (05/16/2021 1:53 PM) [email or web address]
== END ==
LOC: KCIC MAMMO 09:39
PROVIDERS: ATTEND Family Medicine
DX: N63.14 Unspecified lump in the right breast, lower inner quadrant (principal); R92.8 Other abnormal and inconclusive findings on diagnostic imaging of breast
CPT/HCPCS: 76641; 77065; G0279; 77061

== ENCOUNTER → 2021-11-28 | Outpatient (CLI) | payer MEDICARE, OTHER ==
[~2021-11-28] MED LIST changes: +CYCL10TA19 PO; -CYCL10TA2 PO
--- NOTE | 2021-11-28 12:10 | KCIC ---
EXAM: Right breast diagnostic mammogram with tomosynthesis; right breast sonogram. HISTORY: 70-year-old female presents for follow-up evaluation of findings within the right breast dem onstrated on a mammogram and sonogram performed 05/16/2021. TECHNIQUE: Full-field digital craniocaudal and mediolateral oblique 2D and 3D tomosynthesis images of the right breast and spot magnification views of the right breast are obtained for evaluation. Compu ter aided detection was applied. Sonographic imaging of the right breast targeted to sites of prior f indings was also performed. COMPARISON: Mammograms dated 05/16/2021, 01/21/2021, 10/04/2019, 08/25/2018, 06/17/2017. Sonograms dated 05/16/2021, 02/13/2021. BREAST PARENCHYMAL DENSITY: Level B - Scattered fibroglandular densities. FINDINGS: There is stable increased density with associated architectural distortion within the poste rior lateral right breast, consistent with scarring within and excisional biopsy bed. There is a stab le circumscribed nodule adjacent to coarse calcification within the 2:30 position at mid depth, the a ppearance of which on prior studies favors a fibroadenoma. There are scattered benign-appearing calci fications. There is a cluster of microcalcifications with indeterminate morphology at the 3:00 positi on approximately 7 cm from the nipple. Sonographic imaging of the right breast demonstrates stable scarring within the 11:30 position. There is a stable 7 mm circumscribed nodule within the 3:00 position 4.5 cm from the nipple allowing for d ifferences in imaging technique, the appearance of which favors a fibroadenoma. There is no new suspi cious sonographic finding. IMPRESSION: 1. Suspicious clustered microcalcifications within the 3:00 position of the right breast 7 cm from th e nipple. Stereotactic guided biopsy is recommended. 2. Stable focal scarring within the posterior lateral right breast and stable circumscribed nodule at the 3:00 position, the appearance of which favors a fibroadenoma. 3 BI-RADS Category 4: Suspicious abnormality. Stereotactic biopsy is recommended, as described above. These findings and recommendations were discussed with the patient and communicated to medical assist ant of the referring physician office at 1200 hours on 11/28/2021. If your mammogram demonstrates that you have dense breast tissue, which could hide abnormalities, and if you have other risk factors for breast cancer that have been identified, you might benefit from s upplemental screening tests that may be suggested by your ordering physician. Dense breast tissue, i n and of itself, is a relatively common condition. This information is not provided to cause undue c oncern, but rather to raise your awareness and to promote discussion with your physician regarding th e presence of other risk factors, in addition to dense breast tissue. A report of your mammography re sults will be sent to you and your physician. You should contact your physician if you have any ques tions or concerns regarding this report. Mammography is a sensitive method for finding small breast cancers, but it does not detect them all a nd is not a substitute for careful clinical examination. A negative mammogram does not negate a clin ically suspicious finding and should not result in delay in biopsying a clinically suspicious abnorma lity. PQRS compliance statement - Patient information was entered into a reminder system with a target due date for the next mammogram. "Our facility is accredited by the [employer] Mammography Program." Electronically signed by: Annabelle Horton MD (11/28/2021 12:08 PM) [email or web address]
== END ==
LOC: KCIC MAMMO 10:01
PROVIDERS: ATTEND Family Medicine
DX: N63.14 Unspecified lump in the right breast, lower inner quadrant (principal); N63.12 Unspecified lump in the right breast, upper inner quadrant; R92.1 Mammographic calcification found on diagnostic imaging of breast
CPT/HCPCS: 76641; 77065; G0279; 77061